=== PATIENT | female | born 1980 | race Caucasian/White ===

== ENCOUNTER 2022-12-24 12:57 | Emergency (ER) | payer OTHER ==
[~2022-12-24] VITALS: Ht 157.5 cm; Wt 140.0 kg
[2022-12-24] MEDS ORDERED: HYDROCODONE/ACETAMINOPHEN 5/325MG TABLET PO STA (13:39)
[2022-12-24] MEDS ORDERED: KETOROLAC 60MG/2ML VIAL IM STA (13:39)
[2022-12-24 13:53] VITALS: BP 154/71
[2022-12-24 14:34] LABS: CLARITY URINE CLEAR (CLEAR); COLOR URINE YELLOW (YELLOW); KETONES URINE NEGATIVE (NEGATIVE); LEUKOCYTE ESTERASE URINE 1+ (NEGATIVE); NITRITE URINE NEGATIVE (NEGATIVE); OCCULT BLOOD URINE 3+ (NEGATIVE); PH URINE 5.5 (4.5-8.0); PROTEIN URINE TRACE (NEGATIVE); SPECIFIC GRAVITY URINE 1.043 (1.005-1.030)
[2022-12-24] MEDS ORDERED: T3 PO (17:36)
[2022-12-24] MEDS ORDERED: NITR100C PO (17:36)
[2022-12-24] MEDS ORDERED: NAPR-681 PO (17:36)
== END 2022-12-24 18:18 | disposition home or self-care (01) ==
LOC: ER 14:52
DX: M54.50 Low back pain, unspecified (principal); N39.0 Urinary tract infection, site not specified; M19.90 Unspecified osteoarthritis, unspecified site; K43.9 Ventral hernia without obstruction or gangrene
CPT/HCPCS: 72100; 74176; 81003; 81025; 96372; 99285; J1885; Z7610

== ENCOUNTER 2023-01-06 12:54 | Inpatient (IN) | payer OTHER ==
[~2023-01-06] VITALS: Ht 157.5 cm; Wt 136.1 kg
[~2023-01-06 12:54] MED LIST: NAPR-681 PO; NITR100C PO; T3 PO
[2023-01-06 13:56] LABS: BASOPHILS % 0.7 % (0.0-2.0); EOSINOPHILS % 3.5 % (0.0-5.0); HEMATOCRIT. 42.3 % (36.0-48.0); HEMOGLOBIN. 13.9 g/dL (12.0-16.0); MEAN CORPUSCULAR HEMOGLOBIN 25.8 pg (28.0-32.0); MEAN CORPUSCULAR VOLUME 78.6 fL (81.0-99.0); MEAN PLATELET VOLUME 9.8 fl (7.4-10.4); MONOCYTES % 6.3 % (2.0-8.0); NEUTROPHILS % 74.5 % (40.0-76.0); PLATELET 566 x1000/uL (130-400); RED BLOOD CELL COUNT 5.38 mill/uL (4.2-5.4); RED CELL DISTRIBUTION WIDTH 16.9 % (11.6-14.6)
[2023-01-06 14:15] LABS: CHLORIDE 106 mEq/L (98-107)
[2023-01-06 16:08] LABS: CLARITY URINE CLEAR (CLEAR); COLOR URINE DARK YELLOW (YELLOW); KETONES URINE NEGATIVE (NEGATIVE); LEUKOCYTE ESTERASE URINE 1+ (NEGATIVE); NITRITE URINE NEGATIVE (NEGATIVE); OCCULT BLOOD URINE NEGATIVE (NEGATIVE); PROTEIN URINE NEGATIVE (NEGATIVE); SPECIFIC GRAVITY URINE 1.026 (1.005-1.030)
[2023-01-06] MEDS ORDERED: KETOROLAC 60MG/2ML VIAL IM STA (18:06)
[2023-01-06] MEDS ORDERED: ONDANSETRON HCL 4MG/2ML INJ IV STA (18:08)
[2023-01-06] MEDS ORDERED: MORPHINE SULFATE 4 MG/ML CPJ (NOT FOR IM USE) IV STA (18:08)
[2023-01-06] MEDS ORDERED: SODIUM CHLORIDE 0.9% 1,000 ML IV ONE (18:15)
[2023-01-06] MEDS ORDERED: LEVOFLOXACIN 750MG PREMIX 150 ML IV ONE (18:15)
[2023-01-06] MEDS ORDERED: METRONIDAZOLE 500 MG PREMIX 100 ML IV ONE (19:30)
[2023-01-06 19:45] LABS: BASOPHILS % 0.5 % (0.0-2.0); HEMOGLOBIN. 13.9 g/dL (12.0-16.0); LYMPHOCYTES % 15.4 % (20.0-50.0); MEAN CORPUSCULAR HEMOGLOBIN 25.5 pg (28.0-32.0); MEAN CORPUSCULAR VOLUME 78.9 fL (81.0-99.0); NEUTROPHILS % 74.1 % (40.0-76.0); PLATELET 557 x1000/uL (130-400); RED BLOOD CELL COUNT 5.45 mill/uL (4.2-5.4)
[2023-01-06 19:52] LABS: CHLORIDE 106 mEq/L (98-107)
[2023-01-06 19:59] LABS: PARTIAL THROMBOPLASTIN TIME 24.2 sec (23.4-31.0); PROTHROMBIN TIME 10.6 sec (9.6-11.0)
[2023-01-06 23:30] VITALS: BP 127/70
[2023-01-06 23:38] VITALS: BP 135/53
[2023-01-06] MEDS ORDERED: ACETAMINOPHEN 325MG TABLET PO PRN (23:45)
[2023-01-06] MEDS ORDERED: DEXTROSE 50% WATER 50ML SYRINGE IV PRN (23:45)
[2023-01-06] MEDS ORDERED: ONDANSETRON HCL 4MG/2ML INJ IV PRN (23:45)
[2023-01-06] MEDS ORDERED: KETOROLAC 15MG/ML VIAL IV PRN (23:45)
[2023-01-06] MEDS ORDERED: GUAIFENESIN 200MG/10ML SUGAR FREE UDC PO PRN (23:45)
[2023-01-06] MEDS ORDERED: CLONIDINE 0.1MG TABLET PO PRN (23:45)
[2023-01-06] MEDS ORDERED: DOCUSATE SODIUM 100MG CAPSULE PO PRN (23:45)
[2023-01-06] MEDS ORDERED: DEXT 5%/0.9% NACL 1,000 ML IV ONE (23:45)
[2023-01-07] MEDS: MORPHINE SULFATE 2 MG/ML CPJ (NOT FOR IM USE) IV PRN ×2 (01:34→08:24)
[2023-01-07 04:00] VITALS: BP 112/68
[2023-01-07 06:29] LABS: BASOPHILS % 0.5 % (0.0-2.0); EOSINOPHILS % 4.3 % (0.0-5.0); HEMATOCRIT. 36.5 % (36.0-48.0); LYMPHOCYTES % 14.9 % (20.0-50.0); MEAN CORPUSCULAR HEMOGLOBIN 26.1 pg (28.0-32.0); MEAN CORPUSCULAR VOLUME 79.2 fL (81.0-99.0); MEAN PLATELET VOLUME 9.9 fl (7.4-10.4); MONOCYTES % 6.3 % (2.0-8.0); PLATELET 462 x1000/uL (130-400); RED BLOOD CELL COUNT 4.61 mill/uL (4.2-5.4); RED CELL DISTRIBUTION WIDTH 16.4 % (11.6-14.6)
[2023-01-07] MEDS: BLOOD SUGAR DIAGNOSTIC STRIP TEST SCH ×3 (06:32→16:56)
[2023-01-07 06:37] LABS: CHLORIDE 108 mEq/L (98-107)
[2023-01-07] MEDS: INSULIN LISPRO 100 UNITS/ML SUBCUT SCH ×3 (06:40→16:56)
[2023-01-07 06:50] LABS: HDL CHOLESTEROL 25 mg/dL (40-59); LDL CHOLESTEROL 97 mg/dL (5-100); T4 FREE 0.93 ng/dL (0.76-1.46)
[2023-01-07 08:00] VITALS: BP 110/70
[2023-01-07] MEDS ORDERED: PANTOPRAZOLE SODIUM 40 MG/VIAL IV SCH (09:00)
[2023-01-07] MEDS ORDERED: ENOXAPARIN 40MG/0.4ML SYR SUBCUT SCH (09:00)
[2023-01-07 12:00] VITALS: BP 112/72
[2023-01-07 16:00] VITALS: BP 110/78
[2023-01-07 16:21] VITALS: BP 110/78
[2023-01-07] MEDS ORDERED: DOCUSATE SODIUM 250MG CAPSULE PO SCH (17:00)
== END 2023-01-07 18:39 | disposition home or self-care (01) | DRG 394 ==
LOC: ER 12:54 → 8WST 21:21 → EDBEDREQ 21:24 → EDBEDREQTM 21:24 → SUPCPDRO 21:55
PROVIDERS: ADMIT Internal Medicine; ATTEND Internal Medicine
DX: K46.0 Unspecified abdominal hernia with obstruction, without gangrene (principal); N39.0 Urinary tract infection, site not specified; Z68.43 Body mass index [BMI] 50.0-59.9, adult; E11.65 Type 2 diabetes mellitus with hyperglycemia; D75.839 Thrombocytosis, unspecified; K43.9 Ventral hernia without obstruction or gangrene; Z20.822 Contact with and (suspected) exposure to COVID-19; E66.01 Morbid (severe) obesity due to excess calories; F17.210 Nicotine dependence, cigarettes, uncomplicated; K59.00 Constipation, unspecified; K58.9 Irritable bowel syndrome, unspecified; Z88.0 Allergy status to penicillin; Z79.899 Other long term (current) drug therapy; Z90.49 Acquired absence of other specified parts of digestive tract
CPT/HCPCS: 36415; 71045; 74176; 80053; 80061; 81003; 82962; 83036; 84439; 84443; 84484; 85025; 85379; 86850; 86900; 93005; 93970; 99285; C9113; J1650; J1956; J2270; J2405; J3490; J7030